=== PATIENT | male | born 1965 | race Caucasian/White ===

== ENCOUNTER 2018-07-10 12:09 | Emergency (ER) | payer OTHER ==
[~2018-07-10] VITALS: Ht 177.8 cm; Wt 70.3 kg
[2018-07-10 14:30] VITALS: BP 136/77
== END 2018-07-10 14:31 | disposition home or self-care (01) ==
LOC: ER 12:09
DX: R22.32 Localized swelling, mass and lump, left upper limb (principal); Z88.0 Allergy status to penicillin